=== PATIENT | female | born 1975 | race Caucasian/White ===

== ENCOUNTER → 2021-02-20 03:52 | Outpatient (CLI) | payer OTHER, SELFPAY ==
[2021-02-20 19:18] LABS: SARS-CoV-2 RNA PCR Negative
== END ==
PROVIDERS: PCP Physician Assistant; Visit Provider Physician Assistant
DX: R09.81 Nasal congestion (principal); Z20.822 Contact with and (suspected) exposure to COVID-19
CPT/HCPCS: C9803; U0003; U0005